=== PATIENT | female | born 1955 | race Two or more races ===

== ENCOUNTER → 2018-06-01 | Day surgery (SDC) | payer OTHER | END | disposition home or self-care (01) | LOC: AMB-ENDOS 12:17 | DX: D12.0 Benign neoplasm of cecum (principal); D12.2 Benign neoplasm of ascending colon; K64.8 Other hemorrhoids ==

== ENCOUNTER 2020-08-01 07:46 | Day surgery (SDC) | payer OTHER | END 2020-08-01 12:40 | disposition home or self-care (01) | LOC: AMB-ENDOS 07:46 | PROVIDERS: ATTEND Surgery | DX: D13.0 Benign neoplasm of esophagus (principal); D13.1 Benign neoplasm of stomach; D13.2 Benign neoplasm of duodenum; K44.9 Diaphragmatic hernia without obstruction or gangrene; Z20.822 Contact with and (suspected) exposure to COVID-19 ==